=== PATIENT | male | born 1960 | race Caucasian/White ===

== ENCOUNTER 2020-03-27 13:53 | Emergency (ER) | payer OTHER ==
[~2020-03-27] VITALS: Ht 175.3 cm; Wt 122.7 kg
[2020-03-27] MEDS ORDERED: oxyCODONE/APAP 5-325mg tablet PO ONE (14:50)
[2020-03-27] MEDS ORDERED: OXYC-145 PO (15:20)
[2020-03-27] MEDS ORDERED: ONDA4TAB6 PO (15:20)
[2020-03-27 15:28] VITALS: BP 140/86
== END 2020-03-27 15:30 | disposition home or self-care (01) ==
LOC: ER 13:53
DX: M25.561 Pain in right knee (principal); Z98.890 Other specified postprocedural states; Z79.899 Other long term (current) drug therapy
CPT/HCPCS: 93971; 99284

== ENCOUNTER 2020-07-05 06:57 | Day surgery (SDC) | payer BC, OTHER ==
[2020-06-28 15:39] LABS: CLARITY,URINE CLEAR (Clear); COLOR,URINE YELLOW (Yellow); GLUCOSE, URINE NEGATIVE (Neg); KETONES,URINE NEGATIVE (Neg); LEUKOCYTE ESTERASE ,URINE NEGATIVE (Neg); NITRITES, URINE NEGATIVE (Neg); OCCULT BLOOD,URINE NEGATIVE (Neg); PROTEIN,URINE NEGATIVE (Neg)
[2020-06-28 15:40] LABS: UA COLLECTION TYPE CLN CATCH MIDSTREAM
[2020-06-28 15:41] LABS: BASOPHILS % (AUTO) 0.2 % (0-1); EOSINOPHILS # (AUTO) 0.1 X10'3 (0-0.9); EOSINOPHILS % (AUTO) 1.4 % (0-6); LYMPHOCYTES # (AUTO) 1.3 X10'3 (1.1-4.8); LYMPHOCYTES % (AUTO) 21.8 % (21-51); MEAN CORPUSCULAR HEMOGLOBIN 32.2 PG (27.0-31.0); MEAN CORPUSCULAR HGB CONC 34.6 g/dL (33.0-36.5); MEAN CORPUSCULAR VOLUME 92.9 FL (78-98); MEAN PLATELET VOLUME 8.9 FL (7.4-10.4); MONOCYTES % (AUTO) 16.1 % (2-12); NEUTROPHILS # (AUTO) 3.7 X10'3 (1.8-7.7); NEUTROPHILS % (AUTO) 60.5 % (42-75); PRE OP HEMATOCRIT 47.9 % (42.0-52.0); PRE OP HEMOGLOBIN 16.6 g/dL (14.0-17.9); PRE OP PLATELET COUNT 227 X10'3 (140-440); RED BLOOD COUNT 5.15 X10'6 (4.70-6.10); RED CELL DISTRIBUTION WIDTH 13.1 % (11.5-14.5)
[2020-06-28 15:57] LABS: ALBUMIN 4.1 G/DL (3.4-5.0); ALKALINE PHOSPHATASE 67 IU/L (46-116); BLOOD UREA NITROGEN 28 MG/DL (7-18); BUN/CREATININE RATIO 23.1 (5.4-32.0); CALCIUM 8.9 MG/DL (8.5-10.1); CHLORIDE 101 MMOL/L (99-107); CREATININE 1.21 MG/DL (0.60-1.10); PRE OP ALT 54 U/L (30-65); PRE OP ANION GAP 8 (8-16); PRE OP AST 26 U/L (10-37); PRE OP BILIRUB, TOTAL 0.4 MG/DL (0.0-1.0); PRE OP GLUCOSE 98 MG/DL (70-104); PRE OP POTASSIUM 3.8 MMOL/L (3.4-5.1); PRE OP SODIUM 138 MMOL/L (135-145); TOTAL CARBON DIOXIDE 29.2 MMOL/L (24-32); TOTAL PROTEIN 8.1 G/DL (6.4-8.2); eGFR 61 ML/MIN
[2020-06-28 18:49] LABS: SMUDGE CELLS 2+; TOTAL CELLS COUNTED 100
[2020-06-28 18:50] LABS: PLATELET ESTIMATE NORMAL
[2020-07-05] VITALS (10 sets, daily range): BP systolic 137–156; BP diastolic 70–99
[~2020-07-05] VITALS: Ht 177.8 cm; Wt 118.8 kg
[~2020-07-05 06:57] MED LIST: AMLO2.5T2 PO; HYDR25TA4 PO; ceFAZolin 2gm in dextrose, iso 50 ML IV ONE; famotidine 10mg tablet PO ONE; ringers solution, lacted 1,000 ML IV SCH
[2020-07-05] MEDS ORDERED: BUPIVAcaine/PF 2.5 mg/ml (0.25%) 30ml vial ONE ×2 (07:05→10:40)
[2020-07-05] MEDS ORDERED: LIDOcaine 1% (10mg/ml) 2ml vial ONE (07:13)
[2020-07-05] MEDS ORDERED: acetaminophen 1000 MG/100ml vial IV ONE (10:15)
[2020-07-05] MEDS ORDERED: sevoflurane 250ml liquid IH ONE (10:15)
[2020-07-05] MEDS ORDERED: midazolam 2 mg/2 ml injection ONE (10:25)
[2020-07-05] MEDS ORDERED: fentaNYL /PF 50mcg/ml 5ml ampule ONE (10:27)
[2020-07-05] MEDS ORDERED: BUPIVACAINE liposomal/PF 13.3 MG/ML vial IM ONE (10:40)
[2020-07-05] MEDS ORDERED: BUPIVAcaine/PF 2.5mg/ml (0.25%) 10ml vial ONE (10:40)
[2020-07-05] MEDS ORDERED: proCHLORperazine 10 MG/2 ml inj IV PRN (10:50)
[2020-07-05] MEDS ORDERED: hydrALAZINE 20mg/ml inj. IV PRN (10:50)
[2020-07-05] MEDS ORDERED: morphine 4 MG/ML inj SYRINge IV PRN (10:50)
[2020-07-05] MEDS ORDERED: ringers solution, lacted 1,000 ML IV SCH (10:50)
[2020-07-05] MEDS ORDERED: meperidine/PF 25mg/ml syringe IV PRN ×2 (10:50)
[2020-07-05] MEDS ORDERED: labetalol 20mg/4ml (5mg/ml) syringe IV PRN (10:50)
[2020-07-05] MEDS ORDERED: morphine 2 MG/ML inj. syringe IV PRN (10:50)
[2020-07-05] MEDS ORDERED: ondansetron/PF 4mg/2ml inj IV PRN (10:50)
[2020-07-05] MEDS ORDERED: propofol inj 20 ML IV ONE (10:57)
[2020-07-05] MEDS ORDERED: rocuronium 10mg/ml inj IV ONE (10:57)
[2020-07-05] MEDS ORDERED: LIDOcaine 2% (20mg/ml) 5ml vial ONE (10:57)
[2020-07-05] MEDS ORDERED: ondansetron/PF 4mg/2ml inj ONE (10:57)
[2020-07-05] MEDS ORDERED: dexamethasone sod phosphate 4mg/ml inj. ONE (10:58)
[2020-07-05] MEDS ORDERED: ketorolac trometh. 30mg/ml inj. ONE (10:58)
[2020-07-05] MEDS ORDERED: labetalol 20mg/4ml (5mg/ml) syringe IV ONE (10:59)
[2020-07-05] MEDS ORDERED: bacitracin 15gm ointment TP ONE (11:08)
[2020-07-05] MEDS ORDERED: glycopyrrolate 0.2mg/ml inj ONE (11:37)
[2020-07-05] MEDS ORDERED: neostigmine methylsulfate 1 MG/ML 10ml vial ONE (11:37)
--- NOTE | 2020-07-05 11:45 | NUR ---
[facility] accompanied by Anesthesiologist Mio and report given by Anesthesiolgist. Lap sites x6 with bandaids and one with island dressing. VS stable. Pt talking and requesting pain meds. 20G right wrist, LR IVF at 100cc/hr. Will monitor closely.
[2020-07-05] MEDS: meperidine/PF 25mg/ml syringe IV PRN ×4 (11:47→12:58)
[2020-07-05] MEDS ORDERED: oxyCODONE/APAP 10/325mg tablet PO ONE (13:00)
--- NOTE | 2020-07-05 13:25 | NUR ---
PATIENT A&OX4, DENIES PAIN, V/S WNL, NEUROVASCULAR CHECKS INTACT, 20G PIV LUE D/C, SCD OFF, BANDAIDS TO LAP SIGHTS OF ABDOMEN CDI.. I HAVE REVIEWED D/C INSTRUCTIONS WITH PATIENT AND FAMILY HAVE VERBALIZED UNDERSTANDING. PATIENT WAS D/C HOME WITH ALL BELONGINGS AND FAMILY GAVE TRANSPORT HOME. PT KNOWS I HAVE CALLED MD OFFICE AND HAD THE MEDICATION ORDERS SWITCHED FROM NORCO TO PERCOCET PER HIS REQUEST DUE TO NAUSEA.
== END 2020-07-05 13:25 | disposition home or self-care (01) ==
LOC: PAS 06:57
PROVIDERS: ATTEND Surgery
DX: K42.0 Umbilical hernia with obstruction, without gangrene (principal); R10.84 Generalized abdominal pain; Z79.899 Other long term (current) drug therapy; I10 Essential (primary) hypertension; E66.9 Obesity, unspecified; Z98.890 Other specified postprocedural states
CPT/HCPCS: 36415; 49653; 64488; 80053; 81003; 82948; 85025; 87635; 93005; C1781; C9290; J1100; J1885; J2001; J2175; J2250; J2270; J2405; J2704; J2710; J3010; J3490; J7120; 85007; A4215; A4618; A6402; A7000; J0131